=== PATIENT | female | born 1985 | race Caucasian/White ===

== ENCOUNTER 2017-12-19 02:45 | Observation (INO) | payer OTHER | END 2017-12-19 03:52 | disposition home or self-care (01) | LOC: FLD 02:45 | PROVIDERS: ADMIT Advanced Practice Midwife; ATTEND Advanced Practice Midwife | DX: O99.89 Other specified diseases and conditions complicating pregnancy, childbirth and the puerperium (principal); Z3A.38 38 weeks gestation of pregnancy | CPT/HCPCS: G0378 ==

== ENCOUNTER 2017-12-25 06:09 | Inpatient (IN) | payer OTHER ==
[2017-12-25] MEDS ORDERED: TERBUTALINE SULFATE 1 MG/ML VIAL IV PRN (06:20)
[2017-12-25] MEDS ORDERED: EPSOM SALT 454 GM TP PRN (06:20)
[2017-12-25] MEDS ORDERED: OXYTOCIN 20 UNIT in LR 1,000 ML IV PRN (06:20)
[2017-12-25] MEDS ORDERED: LR 1,000 ML IV PRN (06:20)
[2017-12-25] MEDS ORDERED: OLIVE OIL 118 ML BTL MISC PRN (06:20)
[2017-12-25] MEDS ORDERED: MISOPROSTOL 200 MCG TAB PR PRN (06:20)
[2017-12-25 07:00] LABS: PLATELET COUNT 210 10^3/uL (150-400)
[2017-12-25] MEDS ORDERED: MISOPROSTOL 100 MCG TAB PO ONE (07:15)
--- NOTE | 2017-12-25 08:31 | PDGENHP ---
History and Physical History and Physical: HPI: Patient is a 32 yo with IUP@ 39wks that presents to L&D for IOL. She reports irregular contractions x 1 week. She states she does have contractions every 5-20 minutes. She denies any LOF, VB. She reports +FM, but states it is less than normal. EDC: 03/01/18 which is based on LMP: 03/16/17 which is known and consistent with Ultrasound at 6 weeks. Her is complicated by: hypothyroid, h/o PIH, h/o PP anxiety, Review of Systems: Constitutional: Denies any fever, chills, or fatigue HEENT: denies any visual changes, difficulty swallowing, hearing loss Cardiovascular: Denies any chest pain, palpitations, leg swelling Respiratory: denies any cough, wheezing, or shortness of breathe GI: Denies any nausea, vomiting, diarrhea, constipation : denies any dysuria, urgency, frequency, vaginal bleeding Musculoskeletal: denies any muscle or bone pain Skin: denies any rashes Neuro: denies any headache, seizures, lightheadedness, dizziness, or loss of consciousness Psychiatric: denies any depression, anxiety, or SI/HI thoughts HISTORY: Previous OB history: x2, proven to 7#7 Past medical history: hypothyroid Past surgical history: none Medications: PNV, levothyroxine Allergies (list reaction): NKDA LABS: Rh: O+ ABS: Neg Rubella: Immune HbsAg: NR HIV: NR VDRL: NR 1hr: 97 GC: Neg Chlamydia: Neg Pap: Normal GBS: Neg BMI: (prepreg) 24 PHYSICAL EXAM: Constitutional: WN, A&Ox3 HEENT: normocephalic atraumatic, supple Heart: RRR, no murmur Chest: CTA-B Abdomen: Soft, nontender, gravid SVE: 1-2/50/-2 Extremities: no edema, negative sara's sign Neuro: grossly normal Psych: normal affect assessment: Reassuring FHTs, baseline 140 +accels, no decels, moderate variability Contractions: toco q none Assessment: 1) [id number] with IUP@ 39wks 2) IOL- elective 3) GBS negative 4) Cat 1 FHR tracing Plan: 1) Admit to L&D 2) cytotec 50mcg x 1 dose 3) pitocin when applicable 4) pain management PRN 5) anticipate
[2017-12-25] MEDS ORDERED: LR 500 ML IV PRN (11:46)
[2017-12-25] MEDS ORDERED: OXYTOCIN 30 UNIT in NS 500 ML IV SCH (12:00)
[2017-12-25] MEDS ORDERED: AMMONIA AROMATIC 1 EACH AMP IH ONE (14:26)
[2017-12-25] MEDS ORDERED: OLIVE OIL 118 ML BTL ONE (14:26)
[2017-12-25] MEDS ORDERED: LIDOCAINE 1% 300 MG/30 ML SDV ONE (14:26)
[2017-12-25] MEDS ORDERED: OXYTOCIN 10 UNIT/ML VIAL ONE (14:27)
[2017-12-25] MEDS ORDERED: TERBUTALINE SULFATE 1 MG/ML VIAL ONE (14:27)
--- NOTE | 2017-12-25 15:44 | OBPROG ---
Labor Progress Note Assessment/Plan: Assessment: [id number] with IUP@ 39-0wks (L/6) IOL GBS Negative cat 1 FHR tracing AROM- clear Plan: cont pitocin JOSE PRN reassess 2hr/PRN anticipate 12/25/17 15:40 Subjective/Intrapartum Course: 12/25/17 15:42 Pt doing well, reports increasing pain with contractions. states she is feeling most pain in her back. she is rating pain 4-5/10. plans JOSE when pain increases. Objective: 12/25/17 06:30 Patient ABO/Rh O POSITIVE 12/25/17 06:30 - SVE Dilation (cm): 4 Effacement (%): 50 Station: -2 Membranes: AROM Amniotic Fluid Color: Clear - Contraction Pattern Assessment Current Contraction Pattern: Regular - FHR Assessment Rios FHR (bpm): 145 FHR Pattern Variability: Moderate FHR Category: 1 - Procedures Non-surgical Procedures: Amniotomy - AP Antepartum Course: 12/25/17 15:44 routine PNC with BWC, h/o PP anxiety due to NICU admission with G1, hypothyroid , h/o PIH Oxytocin Orders Assessment - Pre-Induction/Augmentation Assessment Gestational Age: 39 week(s) and 0 day(s) ICD10 Worksheet Patient Problems: Problems Problem Status Onset Elective induction of labor planned Acute
[2017-12-25] MEDS ORDERED: BUPIVACAINE 0.25% 30 ML SDV ONE (15:45)
[2017-12-25] MEDS ORDERED: PHENYLEPHRINE HCL 100 MCG/ML SYR ONE (15:45)
[2017-12-25] MEDS ORDERED: fentaNYL 100 MCG/2 ML INJ ONE (15:46)
[2017-12-25] MEDS ORDERED: ONDANSETRON 4 MG/2 ML VIAL IVP PRN (16:20)
[2017-12-25] MEDS ORDERED: PHENYLEPHRINE HCL 100 MCG/ML SYR IVP PRN (16:20)
--- NOTE | 2017-12-25 16:24 | POSTANESTH ---
Post Anesthetic Evaluation Cardiovascular Status: Normal, Stable, Similar to Pre-Op Cond Respiratory Status: Normal, Stable, Similar to Pre-op Cond. Level of Consciousness/Mental Status: Can Participate in Eval, Alert and Oriented Pain Control: Adequate, Prn Tx Ordered Nausea/Vomiting Control: Adequate, Prn Tx Ordered Complications Possibly Related to Anesthesia: None Noted
--- NOTE | 2017-12-25 16:29 | PREANESOB ---
Obstetric Pre-Anesthesia Info - General Info Proposed Procedure: Labor and delivery with pitocin. : 3 Para: 0 BOB: [birth year] Gestational Age: 39 week(s) and 0 day(s) - Info Status: Full Term Monitors: External FHR Baseline (bpm): 140 FHR Pattern: Reassuring - Labor Status Cervical Dilation per last OB SVE: 4 Station per last OB SVE: -2 Amniotic Fluid Color: Clear Pitocin: In Use Indications for Labor Analgesia: Induction of Labor, Pain Control Labor Epidural: Proposed Anesthesia ROS: Prior labor epidural. Allergies/Adverse Reactions: Allergy/AdvReac Type Severity Reaction Status Date / Time dinoprostone [From Cervidil] Allergy Verified 12/25/17 07:04 Penicillins Allergy Verified 06/19/15 21:25 Sulfa (Sulfonamide Allergy Hives Verified 08/07/15 07:17 Antibiotics) Home Medications: Medication Instructions Recorded Levothyroxine [Synthroid 50 mcg 100 mcg PO DAILY06 06/19/15 (*)] Vit27&Calcium/Iron/FA 1 each PO DAILY 06/19/15 [] Visit Medications: Generic Name Dose Route Start Last Admin Trade Name Freq PRN Reason Stop Dose Admin Diphenhydramine HCl 25 - 50 mg 12/25/17 16:20 Benadryl Injection IVP 06/23/18 16:19 Q6HRS PRN Itching Lactated Ringer's 1,000 mls @ 0 mls/hr 12/25/17 06:20 Lr IV 12/26/17 06:19 PRN PRN SEE PROTOCOL CONDITIONS Protocol Per Protocol Oxytocin 20 unit/ Lactated 1,002 mls @ 150 mls/hr 12/25/17 06:20 Ringer's IV PRN PRN Post- bleeding Lactated Ringer's 500 mls @ 500 mls/hr 12/25/17 11:46 Lr IV 12/26/17 11:46 PRN PRN Maternal Hypotension Oxytocin 30 unit/ Sodium 503 mls @ 0 mls/hr 12/25/17 12:00 12/25/17 12:14 Chloride IV 06/23/18 11:59 503 mls CONT NIKOLAY Administration Protocol Per Protocol Fentanyl/Bupivacaine HCl 100 mls @ 0 mls/hr 12/25/17 16:30 Fentanyl/Bupivacaine/Ns 2 Mcg/Ml 0.1% (Premix EP 01/04/18 16:29 CONT NIKOLAY Protocol As Directed Lactated Ringer's 500 mls @ 0 mls/hr 12/25/17 16:30 Lr IV 06/23/18 16:29 CONT NIKOLAY As Directed Ibuprofen 600 mg 12/25/17 06:20 Motrin PO 06/23/18 06:19 Q6HRS PRN post , inflammation Magnesium Sulfate 454 gm 12/25/17 06:20 Epsom Salt TP 06/23/18 06:19 Q1H PRN perineal discomfort Misoprostol 800 - 1,000 mcg 12/25/17 06:20 Cytotec AK ONCE PRN Vaginal Atony/Bleeding [place] Oil 118 ml 12/25/17 06:20 Sweet Oil MISC 06/23/18 06:19 ONCE PRN perineal massage Ondansetron HCl 4 mg 12/25/17 16:20 Zofran IVP 12/26/17 16:19 Q4HRS PRN Nausea/Vomiting, Can't Take PO Phenylephrine HCl 100 mcg 12/25/17 16:20 Neosynephrine IVP 06/23/18 16:19 .Q2M PRN Hypotension Terbutaline Sulfate 0.25 mg 12/25/17 06:20 Brethine IV 06/23/18 06:19 ONCE PRN Tachysystole Discontinued Medications Generic Name Dose Route Start Last Admin Trade Name Freq PRN Reason Stop Dose Admin Ammonia (Aromatic Spirit) Confirm 12/25/17 14:26 Ammonia Aromatic Administered 12/25/17 14:27 Dose 1 each IH .STK-MED ONE Bupivacaine HCl Confirm 12/25/17 15:45 Sensorcaine 0.25% Sdv Administered 12/25/17 15:46 Dose 30 ml .ROUTE .STK-MED ONE Fentanyl Confirm 12/25/17 15:46 Sublimaze Administered 12/25/17 15:47 Dose 100 mcg .ROUTE .STK-MED ONE Lidocaine HCl Confirm 12/25/17 14:26 Lidocaine Hcl 1% Administered 12/25/17 14:27 Dose 300 mg .ROUTE .STK-MED ONE Misoprostol 50 mcg 12/25/17 07:15 12/25/17 07:26 Cytotec PO 12/25/17 07:16 50 mcg ONCE ONE Administration [place] Oil Confirm 02/08/18 14:26 Sweet Oil Administered 12/25/17 14:27 Dose 118 ml .ROUTE .STK-MED ONE Oxytocin Confirm 12/25/17 14:27 Pitocin Administered 12/25/17 14:28 Dose 40 unit .ROUTE .STK-MED ONE Phenylephrine HCl Confirm 12/25/17 15:45 Neosynephrine Administered 12/25/17 15:46 Dose 1,000 mcg .ROUTE .STK-MED ONE Terbutaline Sulfate Confirm 12/25/17 14:27 Brethine Administered 12/25/17 14:28 Dose 1 mg .ROUTE .STK-MED ONE - Anesthesia History Response to Local Anesthetics: Normal Anesthesia & Operative History: No Prior Problems Family Anesthesia History: Negative - Social History Substance Use/Abuse: Denies - Vital Signs Blood Pressure: 132/75 Heart Rate: 98 Height/Weight (Nursing): Height 170.18 cm Weight 81.193 kg - Focused Exam Neck exam: FROM Mallampati Score: Class 1 Mouth exam: normal dental/mouth exam Pulmonary: no respiratory distress Cardiovascular: regular rate and rhythym Labs: 12/25/17 06:30 Patient ABO/Rh O POSITIVE 12/25/17 06:30 - Plan Consent Signed and on Chart: Yes Patient/Guardian Understands and Agrees to Plan: Yes Urgent/Emergent Case: Christian lang completed preop but documented later for safe timely pt care (Written consent after CSE for patient comfort.)
[2017-12-25] MEDS ORDERED: LR 500 ML IV SCH (16:30)
[2017-12-25] MEDS ORDERED: fentaNYL 2MCG/ML/BUP 0.1% RTU 100 ML EP SCH (16:30)
[2017-12-25] MEDS ORDERED: fentaNYL 200 MCG, BUPIVACAINE 0.5% 20 ML in NS 100 ML EP SCH (17:00)
[2017-12-25] MEDS: IBUPROFEN 600 MG TAB PO PRN (18:13)
--- NOTE | 2017-12-25 18:21 | OBDEL ---
Info Type: Vaginal Presentation at Delivery: Vertex L&D Analgesia/Anesthesia Type: Epidural GBS+: No Intrapartum Medications: Generic Name Dose Route Start Last Admin Trade Name Freq PRN Reason Stop Dose Admin Oxytocin 30 unit/ Sodium 503 mls @ 0 mls/hr 12/25/17 12:00 12/25/17 12:14 Chloride IV 06/23/18 11:59 503 mls CONT NIKOLAY Administration Protocol Per Protocol Ibuprofen 600 mg 12/25/17 06:20 12/25/17 18:13 Motrin PO 06/23/18 06:19 600 mg Q6HRS PRN Administration post , inflammation Discontinued Medications Generic Name Dose Route Start Last Admin Trade Name Freq PRN Reason Stop Dose Admin Misoprostol 50 mcg 12/25/17 07:15 12/25/17 07:26 Cytotec PO 12/25/17 07:16 50 mcg ONCE ONE Administration - Hospital Course Intrapartum: 12/25/17 15:42 Pt doing well, reports increasing pain with contractions. states she is feeling most pain in her back. she is rating pain 4-5/10. plans JOSE when pain increases. Indications for Delivery: Elective Vaginal Delivery - Delivery Provider Delivery Physician/CNM: Paula Cadena - Labor and Delivery Onset of Contractions Date: 12/25/17 Onset of Contractions Time: 15:30 Onset of Contractions Type: Induced Rupture of Membranes Date: 12/25/17 Rupture of Membranes Time: 15:15 Rupture of Membranes Type: Artificial Amniotic Fluid Color: Clear Dilation Complete Date: 12/25/17 Dilation Complete Time: 17:35 Placenta Delivery Date: 12/25/17 Placenta Delivery Time: 17:58 Total Hours of Labor: 2 Non-surgical Procedures: Amniotomy Vaginal Sponge Count Correct: Yes Vaginal Needle Count Correct: Yes Vaginal Sweep Performed: Yes EBL: 200 Delivery Events: None - Medications Labor Augmentation/Induction Methods Used: Pitocin, Misoprostol [place] Data BOB: [birth year] Gestational Age: 39 week(s) and 0 day(s) Rios Delivery Date: 12/25/17 Delivery Time: 17:50 Sex of : Female Score (1 Min): 8 Score (5 Min): 9 ICD10 Worksheet Patient Problems: Problems Problem Status Onset (spontaneous vaginal delivery) Acute Elective induction of labor planned Acute - ICD10 Problem Qualifiers (1) (spontaneous vaginal delivery)
[2017-12-25] MEDS ORDERED: HYDROCODONE/APAP 5/325 TAB PO PRN (18:24)
[2017-12-25] MEDS ORDERED: SIMETHICONE 80 MG TAB CHEW PO PRN (18:24)
[2017-12-25] MEDS ORDERED: ACETAMINOPHEN 325 MG TAB PO PRN (18:24)
[2017-12-25] MEDS ORDERED: HYDROCORTISONE 0.5% CREAM TP PRN (18:24)
[2017-12-26] MEDS: IBUPROFEN 600 MG TAB PO PRN ×4 (00:10→20:14)
[2017-12-26 08:24] VITALS: O2SAT 95
--- NOTE | 2017-12-26 17:49 | OBPP ---
Progress Note Assessment/Plan: Assessment: PPD 1 s/p -PT SEEN APPROX NOON - NOTE WRITTEN LATE hypothyroid hx of PP anxiety Plan: routine care 12/26/17 17:46 Subjective/ Course: 12/26/17 17:47 Pt doing great. baby has latched couple times. nipples sore but will order APNO. mod cramps but less today. urinating fine. bld is less. girls have come to visit and cute pics with family together Objective: 12/25/17 06:30 Patient ABO/Rh O POSITIVE 12/25/17 06:30 Temp Pulse Resp BP Pulse Ox 36.6 C 82 17 113/70 95 12/26/17 08:10 12/26/17 08:10 12/26/17 08:10 12/26/17 08:10 12/26/17 08:10 Uterine Position/Fundal Height: Umbilicus -1 Uterine Tone: Firm Physical Exam - Physical Exam Abdomen: non-tender, soft, other (FF at umb -1) Extremities: non-tender, pedal edema (minimal) Skin: normal color, warm/dry Neuro/Psych: alert, normal mood/affect
[2017-12-26] MEDS: DOCUSATE SODIUM 100 MG CAP PO PRN (20:14)
[2017-12-26 20:48] VITALS: RESP 18
[2017-12-27] MEDS: IBUPROFEN 600 MG TAB PO PRN ×2 (03:09→08:56)
[2017-12-27] MEDS ORDERED: LEVOTHYROXINE 100 MCG TAB PO SCH (06:00)
[2017-12-27] MEDS: DOCUSATE SODIUM 100 MG CAP PO PRN (08:56)
[2017-12-27 09:12] VITALS: BP 112/74; PULSE 74; TEMP 97.4
--- NOTE | 2017-12-27 11:44 | OBGCSDC ---
General Delivery Information - General Info : 3 Para: 1 Abortions: 0 Type: Vaginal L&D Analgesia/Anesthesia Type: Epidural Admission Date: 12/25/17 Labs: Patient ABO/Rh O POSITIVE 12/25/17 06:30 Hct 38.5 % (38.0-47.0) 12/25/17 06:30 - Hospital Course Antepartum: 12/25/17 15:44 routine PNC with BWC, h/o PP anxiety due to NICU admission with G1, hypothyroid , h/o PIH Intrapartum: 12/25/17 15:42 Pt doing well, reports increasing pain with contractions. states she is feeling most pain in her back. she is rating pain 4-5/10. plans JOSE when pain increases. : 12/26/17 17:47 Pt doing great. baby has latched couple times. nipples sore but will order APNO. mod cramps but less today. urinating fine. bld is less. girls have come to visit and cute pics with family together 12/27/17 12:54 S) Pt doing well, reports min pain and bleeding. she is ambulating and voiding without difficulty. She is . She desires discharge home today. O) VSS, afebrile constitutional: WNWF, A&Ox3 HEENT: normocephalic, atraumatic, supple Heart: RRR, No murmur Chest: CTA-B Abdomen: Soft, nontender Uterus: Firm at U-2 Lochia: Minimal rubra Perineum: Intact, healing well Extremities: Trace edema, and negative Reji's sign Neuro: Grossly normal A) 32-year-old S/P PPD#2 P) Discharge home today Continue Pelvic rest x6wks Discussed danger signs (infection, preeclampsia, depression, heavy bleeding, etc ) RTO in 4/6 weeks Vaginal - Delivery Provider Delivery Physician/CNM: Paula Cadena - Diagnosis Labor: Induced Rupture of Membranes Type: Artificial Amniotic Fluid Color: Clear Delivery Events: None - Procedures Non-surgical Procedures: Amniotomy - Delivery Non-surgical Procedures: Amniotomy EBL: 200 Data BOB: [birth year] Gestational Age: 39 week(s) and 2 day(s) Rios Delivery Date: 12/25/17 Delivery Time: 17:50 Sex of : Female Score (1 Min): 8 Score (5 Min): 9 Discharge Information - Discharge Information Condition: Good Instruction/Follow Up: Four Weeks, Six Weeks
== END 2017-12-27 12:30 | disposition home or self-care (01) | DRG 775 ==
LOC: FOB 06:09 → FLD 06:17 → FOB 22:00
PROVIDERS: ADMIT Advanced Practice Midwife; ATTEND Advanced Practice Midwife
PROC: 3E033VJ Introduction of Other Hormone into Peripheral Vein, Percutaneous Approach (ICD-10-PCS; principal; 2017-12-25)
PROC: 10907ZC Drainage of Amniotic Fluid, Therapeutic from Products of Conception, Via Natural or Artificial Opening (ICD-10-PCS; principal; 2017-12-25)
PROC: 10E0XZZ Delivery of Products of Conception, External Approach (ICD-10-PCS; principal; 2017-12-25)
DX: O99.283 Endocrine, nutritional and metabolic diseases complicating pregnancy, third trimester (principal); E03.9 Hypothyroidism, unspecified; Z3A.39 39 weeks gestation of pregnancy; Z37.0 Single live birth
CPT/HCPCS: J2370; J2590; J3010; J3105